=== PATIENT | female | born 1985 | race Caucasian/White ===

== ENCOUNTER 2016-11-07 23:08 | Emergency (ER) | payer OTHER ==
--- NOTE | ~2016-11-07 | ER ---
PATIENT'S NAME: SHANNON BEASLEY [facility] AGE: 31 Y [address] ROOM: [place] [address] LOCATION: ED ADMIT DATE: 11/07/2016 ER/Outpatient Report DISCHARGE DATE: 11/08/2016 FAMILY PHYSICIAN: PHYSICIAN, NO ATTENDING PHYSICIAN: Simone Last Admission date and time are documented on the medical record. I saw the patient at 2330 hours. CHIEF COMPLAINT: Left flank pain. HISTORY OF PRESENT ILLNESS: This patient is a 31-year-old female who comes in with left flank pain. This started tonight. She has had some sinus problems and has been on doxycycline for about a week. She has about 3 to 4 days left. She has had some intermittent nausea and vomiting since Sunday and then the right flank pain started tonight. She has had some hematuria. By history, she has had nephrolithiasis. She has had to have cysto, stent, and lithotripsy about 2- 1/2 years ago. No chest pain or shortness of breath. No real lightheaded and dizzy, but no syncope or near syncope. No headache, eyes, ears, nose, throat, neck, or spine pain. No fall or trauma. No joint or muscle swelling, redness, or pain. No skin eruptions or rash. No endocrine problems, neuro changes, or psych issues. HOME MEDICATIONS: See attached medication list. ALLERGIES: AMOXICILLIN, PENICILLIN, SULFA, CEPHALOSPORINS, ERYTHROMYCIN, AND ZITHROMAX. SOCIAL HISTORY: Nonsmoker, occasional intake of alcohol. SIGNIFICANT PAST MEDICAL HISTORY: Nephrolithiasis, remote history of tobacco and marijuana abuse. OPERATIONS: Cholecystectomy, appendectomy, tubal ligation, ankle surgery, cysto with stent placement, lithotripsy, and IUD placement. REVIEW OF SYSTEMS: All systems reviewed by me are negative with the exception of those discussed in the history of present illness. PATIENT'S NAME: SHANNON BEASLEY [facility] AGE: 31 Y [address] ROOM: [place] [address] LOCATION: [facility] ADMIT DATE: 11/07/2016 ER/Outpatient Report DISCHARGE DATE: 11/08/2016 FAMILY PHYSICIAN: PHYSICIAN, NO ATTENDING PHYSICIAN: Simone Last PHYSICAL EXAMINATION: VITAL SIGNS: Temperature 98.4, pulse 109, respirations 18, blood pressure 170/90, and O2 sat on room air is 98%. HEAD: Normocephalic. EYES, EARS, NOSE, AND THROAT: Clear. Mucous membranes moist. NECK: Negative. SPINE: Negative. LUNGS: Clear. Good airflow. No rales, rhonchi, or wheezes. HEART: Regular. Pulses are palpable. ABDOMEN: Obese, soft, nondistended, tender left flank area to palpation. No true guarding or rigidity. No rebound tenderness. Active bowel tones. No palpable masses. No organomegaly. Some mild CVA tenderness. EXTREMITIES: Intact. NEUROVASCULAR: Intact. SKIN: Clear. LABORATORY DATA: CMS was normal except for an elevated creatinine 1.2, low GFR of 52, AST was elevated at 54, ALT was elevated at 128. White count is 7400, 70 segs, 22 lymphs, 6 monos, 1 eo, 1 baso, hemoglobin is 12 with hematocrit 37.9, and platelet count is 257,000. Urine showed 0-2 whites, 10-20 reds, 10-20 epithelial cells, moderate bacteria per high-powered field and positive nitrites on dipstick. CT scan of the abdomen and pelvis with renal stone protocol showed no evidence of intrarenal stones, ureteral stones, or bladder stones. There was no hydronephrosis. There was no free fluid and free air. There was no solid organ abnormalities in the abdomen or pelvis. CT scan was read by Radiology, see dictated transcribed report. EMERGENCY DEPARTMENT COURSE: I did start the patient on IV normal saline, fluids. Gave her morphine IV for pain, Zofran IV for nausea, vomiting, Toradol IV for pain along with 1 L normal saline. IMPRESSION: Left flank pain, etiology uncertain, most likely secondary to urinary tract infection. PLAN: The patient dismissed home. Observation. Activity as tolerated. Fluids, diet as tolerated. Good hydration. Empty bladder often. Continue present home medications and care. Cipro 500 mg b.i.d. for 7 days. Follow up with personal physician as needed. Discussion ensued with the patient concerning my findings and recommendations, she understands. PATIENT'S NAME: SHANNNO BEASLEY [facility] AGE: 31 Y [address] ROOM: [place] [address] LOCATION: [facility] ADMIT DATE: 11/07/2016 ER/Outpatient Report DISCHARGE DATE: 11/08/2016 FAMILY PHYSICIAN: NICOLE RYAN ATTENDING PHYSICIAN: Simone Last MD SHERRI URIAS/modl /[id number] d: 11/08/16 0158 t: 11/08/16 1813, OUTPATIENT REPORT
[2016-11-07 23:50] LABS: BASOPHIL % 0.5 %; EOSINOPHIL # 0.1 K/uL (0.0-0.5); EOSINOPHIL % 1.2 %; HEMATOCRIT 37.9 % (33.0-46.0); IMMATURE GRANULOCYTE % 0.3 %; LYMPHOCYTE # 1.6 K/uL (0.8-4.0); LYMPHOCYTE % 21.8 %; MCH 28.2 pg (27.0-34.0); MCHC 31.7 gm/dL (32.0-36.5); MONOCYTE # 0.4 K/uL (0.0-1.0); MONOCYTE % 5.8 %; MPV 9.9 fl (9.4-12.4); NEUTROPHIL # (ANC) 5.2 K/uL (1.8-7.8); NEUTROPHIL % 70.4 %; NRBC % 0 /100WBC (0-0.00); PLATELET COUNT 257 K/uL (150-450); RBC 4.26 M/uL (3.50-5.50); RDW-CV 14.7 % (11.9-14.6); WBC 7.4 K/uL (4.0-11.0)
[2016-11-07 23:52] LABS: BLOOD URINE 250 /UL (NEGATIVE); GLUCOSE URINE NEGATIVE (NEGATIVE); KETONE URINE 5 mg/dL (NEGATIVE); LEUKOCYTES URINE 25 /UL (NEGATIVE); NITRITE URINE POSITIVE (NEGATIVE); PROTEIN URINE 30 mg/dL (NEGATIVE); SPEC GRAVITY URINE 1.025 (1.003-1.035); UROBILINOGEN URINE 4 mg/dL (NORMAL)
[2016-11-07 23:57] LABS: COLOR URINE AMBER (YELLOW); TURBIDITY URINE 1+ (CLEAR)
[2016-11-08 00:01] LABS: WBC URINE 0-2 #/HPF (NEGATIVE)
[2016-11-08 00:02] LABS: BACTERIA URINE MODERATE (NEGATIVE)
[2016-11-08 00:05] LABS: ALBUMIN 3.7 gm/dL (3.5-5.0); ANION GAP 12.8 (10.0-19.0); CREATININE 1.2 mg/dL (0.5-1.1); POTASSIUM 3.8 mMol/L (3.7-5.1); TOTAL BILIRUBIN 0.2 mg/dL (0.0-1.5); TOTAL PROTEIN 7.1 g/dL (6.0-8.4)
== END 2016-11-08 00:45 | disposition disaster alternative care site (69) ==
LOC: GMED 23:08
PROVIDERS: Emergency Medicine
DX: R10.9 Unspecified abdominal pain (principal); Z88.1 Allergy status to other antibiotic agents; Z88.0 Allergy status to penicillin; Z88.8 Allergy status to other drugs, medicaments and biological substances; Z98.51 Tubal ligation status; Z98.890 Other specified postprocedural states
CPT/HCPCS: J1885; J2270; J2405; J7030